=== PATIENT | female | born 1950 | race Caucasian/White ===

== ENCOUNTER → 2016-05-28 | Outpatient (CLI) | payer MEDICARE | END | disposition disaster alternative care site (69) | LOC: LKCL 17:31 | DX: Z12.4 Encounter for screening for malignant neoplasm of cervix (principal); Z00.00 Encounter for general adult medical examination without abnormal findings; Z01.419 Encounter for gynecological examination (general) (routine) without abnormal findings | CPT/HCPCS: G0145 ==

== ENCOUNTER → 2016-05-31 | Outpatient (CLI) | payer MEDICARE, OTHER ==
--- NOTE | ~2016-05-31 | PUL ---
PATIENT'S NAME: MIKE CRAMER [facility] AGE: 65 Y [address] ROOM: [place] [address] LOCATION: [facility] ADMIT DATE: 05/31/2016 Pulmonary DISCHARGE DATE: FAMILY PHYSICIAN: NOREEN GUERRERO MD ATTENDING PHYSICIAN: NOREEN GUERRERO NAME OF PROCEDURE: Sleep Study DATE OF PROCEDURE: 05/31/16 TECH: BRADY Fischer TEST #: [facility] [place]# [id number] MEDICAL HISTORY: Patient is a 65-year-old massively obese woman with a history of daytime sleepiness and nocturnal hypoxemia. SLEEP STAGE SUMMARY: The patient was studied for 425 minutes of which she slept 235 minutes. She fell asleep in 36 minutes and slept for 53% of the night. Sleep architecture revealed a decline in slow wave and REM sleep. RESPIRATORY SUMMARY: Oxygen saturations ranged from 70-88%. There were 20 apneas and 146 hypopneas for an apnea/hypopnea index severely elevated at 42 events per hour. The majority of the events occurred too late in the study to allow for initiation of CPAP. EKG SUMMARY: No dysrhythmias were noted. LIMB MOVEMENT SUMMARY: No clinically relevant periodic limb movements were noted. SUMMARY: Severe obstructive sleep apnea. PLAN: Would consider a repeat study for initiation and titration of CPAP. Patient will receive results from the ordering provider. MD CHAVA THOMSA/ /[id number] dtt: 06/12/16 1303 Claudia David E. dtd: 06/03/16 1507
== END | disposition disaster alternative care site (69) ==
LOC: GSLP 20:33
DX: E66.9 Obesity, unspecified (principal); G47.33 Obstructive sleep apnea (adult) (pediatric); R09.02 Hypoxemia